=== PATIENT | male | born 1980 ===

== ENCOUNTER 2018-06-03 08:00 | Day surgery (SDC) | payer OTHER ==
[~2018-06-03 08:00] MED LIST: TRIUMEQ TABLET1 EACH PO; [UNRECOGNIZED DRUG - OTHER] PO
== END 2018-06-03 15:25 | disposition home or self-care (01) ==
LOC: ADM 08:00 → CIR.AMB 08:00 → ADM 12:30 → CIR.AMB 15:25
DX: A63.0 Anogenital (venereal) warts (principal)